=== PATIENT | female | born 1955 | race Caucasian/White ===

== ENCOUNTER → 2017-02-17 | Outpatient (CLI) | payer MEDICARE, OTHER | LOC: KOH-I 09:22 | DX: Z13.820 Encounter for screening for osteoporosis (principal); Z78.0 Asymptomatic menopausal state | CPT/HCPCS: 77080 ==

== ENCOUNTER → 2020-12-19 | Outpatient (CLI) | payer MEDICARE, OTHER | LOC: MAMO 08:06 | DX: Z12.31 Encounter for screening mammogram for malignant neoplasm of breast (principal); M15.8 Other polyosteoarthritis | CPT/HCPCS: 77063; 77067; 77080 ==

== ENCOUNTER 2021-09-04 10:19 | Emergency (ER) | payer MEDICARE, OTHER ==
[~2021-09-04] VITALS: Ht 170.2 cm; Wt 84.4 kg
== END 2021-09-04 13:25 | disposition home or self-care (01) ==
LOC: ER1 10:19
DX: U07.1 COVID-19 (principal); Z23 Encounter for immunization; E78.5 Hyperlipidemia, unspecified; Z90.710 Acquired absence of both cervix and uterus; Z88.2 Allergy status to sulfonamides
CPT/HCPCS: 99283; M0245